=== PATIENT | male | born 1960 | race Caucasian/White ===

== ENCOUNTER 2017-09-14 11:00 | Emergency (ER) | payer SELFPAY ==
[~2017-09-14] VITALS: Ht 167.6 cm; Wt 61.4 kg
[2017-09-14 11:24] VITALS: BP 218/110; PULSE 94; RESP 12; TEMP 98.2; O2SAT 94
[2017-09-14 13:53] LABS: AUTOMATED NEUTROPHIL # 9.7 TH/MM3 (1.8-7.7); BASOPHIL % 0.3 % (0.0-2.0); EOSINOPHIL % 0.1 % (0.0-4.0); HEMATOCRIT 44.2 % (39.0-51.0); HEMOGLOBIN 15.1 GM/DL (13.0-17.0); LYMPH % 6.6 % (9.0-44.0); LYMPHOCYTE # 0.8 TH/MM3 (1.0-4.8); MEAN CELL VOLUME 99.7 FL (80.0-100.0); MEAN CORPUSCULAR HGB CONC 34.1 % (32.0-36.0); MEAN PLATELET VOLUME 7.1 FL (7.0-11.0); MONO % 7.1 % (0.0-8.0); MONOCYTE # 0.8 TH/MM3 (0-0.9); NEUT % 85.9 % (16.0-70.0); PLATELET COUNT 304 TH/MM3 (150-450); RED BLOOD COUNT 4.43 MIL/MM3 (4.50-5.90); RED CELL DISTRIBUTION WIDTH 13.3 % (11.6-17.2); WHITE BLOOD COUNT 11.3 TH/MM3 (4.0-11.0)
[2017-09-14 14:15] LABS: ALT (GPT) 185 U/L (12-78); AST (GOT) 244 U/L (15-37); BICARBONATE 29.2 MEQ/L (21.0-32.0); BLOOD UREA NITROGEN 6 MG/DL (7-18); CALCIUM 8.7 MG/DL (8.5-10.1); CHLORIDE 103 MEQ/L (98-107); CREATININE 0.66 MG/DL (0.60-1.30); GLOMERULAR FILTRATION RATE 125 ML/MIN (>89); GLUCOSE,RANDOM 80 MG/DL (74-106); SODIUM (NA) 140 MEQ/L (136-145)
[2017-09-14 14:17] LABS: ALKALINE PHOSPHATASE 91 U/L (45-117); TOTAL BILIRUBIN ADULT 0.6 MG/DL (0.2-1.0); TOTAL PROTEIN 7.7 GM/DL (6.4-8.2)
[2017-09-14] MEDS ORDERED: LIBRAX PO (14:54)
--- NOTE | 2017-09-14 14:56 | PD ---
HPI Chief Complaint: Medical Clearance Time Seen by Provider: 14:26 Travel History International Travel<30 days: No Contact w/Intl Traveler<30days: No Traveled to known affect area: No History of Present Illness HPI patient states that he moved from [facility], and while with friends yesterday decided that he needs to stop drinking, last drink was at 2 am ( nearly 12 hours ago), patient states he feels a little jumpy but no other major complaint. he is here seeking guidance for detox. PCP-NO LOCAL ALL:PCN PMHX:HTN OFF MEDS FOR 1 YEAR SOCIAL HX: patient drinks regularly as much as 20 beers a day PFSH Past Medical History Cardiovascular Problems: Yes (HTN) Review of Systems Except as stated in HPI: all other systems reviewed are Neg General / Constitutional: No: Fever Eyes: No: Visual changes HENT: No: Headaches Cardiovascular: No: Chest Pain or Discomfort Respiratory: No: Shortness of Breath Gastrointestinal: No: Abdominal Pain Genitourinary: No: Dysuria Musculoskeletal: No: Pain Skin: No Rash Neurologic: No: Weakness Psychiatric: No: Depression Endocrine: No: Polydipsia Hematologic/Lymphatic: No: Easy Bruising Physical Exam Narrative GENERAL: SKIN: Warm and dry. HEAD: Atraumatic. Normocephalic. EYES: Pupils equal and round. No scleral icterus. No injection or drainage. ENT: No nasal bleeding or discharge. Mucous membranes pink and moist. NECK: Trachea midline. No JVD. CARDIOVASCULAR: Regular rate and rhythm. RESPIRATORY: No accessory muscle use. Clear to auscultation. Breath sounds equal bilaterally. GASTROINTESTINAL: Abdomen soft, non-tender, nondistended. MUSCULOSKELETAL: Extremities without clubbing, cyanosis, or edema. No obvious deformities. NEUROLOGICAL: Awake and alert. No obvious cranial nerve deficits. Motor grossly within normal limits. Five out of 5 muscle strength in the arms and legs. Normal speech. PSYCHIATRIC: Appropriate mood and affect; insight and judgment normal. Data Data Last Documented VS Vital Signs Date Time Temp Pulse Resp B/P (MAP) Pulse Ox O2 Delivery O2 Flow Rate FiO2 09/14/17 11:24 98.2 94 12 218/110 (146) 94 Orders Orders Complete Blood Count With Diff (09/14/17 11:57) Comprehensive Metabolic Panel (09/14/17 11:57) Alcohol (Ethanol) (09/14/17 11:57) Labs Laboratory Tests Test 09/14/17 13:05 White Blood Count 11.3 TH/MM3 Red Blood Count 4.43 MIL/MM3 Hemoglobin 15.1 GM/DL Hematocrit 44.2 % Mean Corpuscular Volume 99.7 FL Mean Corpuscular Hemoglobin 34.0 PG Mean Corpuscular Hemoglobin Concent 34.1 % Red Cell Distribution Width 13.3 % Platelet Count 304 TH/MM3 Mean Platelet Volume 7.1 FL Neutrophils (%) (Auto) 85.9 % Lymphocytes (%) (Auto) 6.6 % Monocytes (%) (Auto) 7.1 % Eosinophils (%) (Auto) 0.1 % Basophils (%) (Auto) 0.3 % Neutrophils # (Auto) 9.7 TH/MM3 Lymphocytes # (Auto) 0.8 TH/MM3 Monocytes # (Auto) 0.8 TH/MM3 Eosinophils # (Auto) 0.0 TH/MM3 Basophils # (Auto) 0.0 TH/MM3 CBC Comment DIFF FINAL Differential Comment Blood Urea Nitrogen 6 MG/DL Creatinine 0.66 MG/DL Random Glucose 80 MG/DL Total Protein 7.7 GM/DL Albumin 4.0 GM/DL Calcium Level 8.7 MG/DL Alkaline Phosphatase 91 U/L Aspartate Amino Transf (AST/SGOT) 244 U/L Alanine Aminotransferase (ALT/SGPT) 185 U/L Total Bilirubin 0.6 MG/DL Sodium Level 140 MEQ/L Potassium Level 3.8 MEQ/L Chloride Level 103 MEQ/L Carbon Dioxide Level 29.2 MEQ/L Anion Gap 8 MEQ/L Estimat Glomerular Filtration Rate 125 ML/MIN Ethyl Alcohol Level LESS THAN 3 MG/DL MDM Medical Decision Making Medical Screen Exam Complete: Yes Emergency Medical Condition: Yes Medical Record Reviewed: Yes Differential Diagnosis anemia v electrolyte abnl v cirrhosis Narrative Course patient is willing to follow outpatient program and he requests guidance about outpatient detox, denies si/hi, denies tremors/seizures/hallucinations or palpitations. Diagnosis Primary Impression: medical clearance Referrals: [facility] (Out patient) for assistance with your detox process Patient Instructions: Alcohol Use Disorder (DC), General Instructions Additional Instructions: as explained before DO NOT drink alcohol and take librax at same time...one or the other Scripts Chlordiazepoxide-Clidinium (Librax) 5-2.5 Mg Cap 1 CAP PO TID, #30 CAP 0 Refills Prov: Lightburn,Darryl Ibrahima MD 09/14/17 Disposition: 01 DISCHARGE HOME Condition: Stable Darryl Juan MD Sep 14, 2017 14:56
[2017-09-14] MEDS ORDERED: CHLO25CA9 PO (15:02)
[2017-09-14 15:25] VITALS: BP 199/97
== END 2017-09-14 15:30 | disposition home or self-care (01) ==
LOC: NEPD 11:23
DX: F10.20 Alcohol dependence, uncomplicated (principal); Y90.0 Blood alcohol level of less than 20 mg/100 ml
CPT/HCPCS: 80053; 80307; 85025; 99283

== ENCOUNTER 2017-10-23 18:23 | Emergency (ER) | payer SELFPAY ==
[~2017-10-23] VITALS: Ht 167.6 cm; Wt 63.5 kg
[~2017-10-23 18:23] MED LIST: CHLO25CA9 PO
[2017-10-23 18:24] VITALS: BP 218/128; PULSE 77; RESP 16; TEMP 98.5; O2SAT 96
[2017-10-24 01:00] VITALS: BP_SYST 190; PULSE 76; RESP 20; O2SAT 97
--- NOTE | 2017-10-24 01:05 | PD ---
HPI Chief Complaint: Skin Problem Time Seen by Provider: 00:46 Travel History International Travel<30 days: No Contact w/Intl Traveler<30days: No Traveled to known affect area: No History of Present Illness HPI The patient is a 57 year old male who presents to the [facility] emergency department with a history of a rash that he reports began 2-3 weeks ago. He reports that it began on his chest and it turned into a pustule. The patient reports that since then he has had other spots that have formed and gone away. At this point he has 4 spots that appear to be pustules. He reports that they are itchy and sometimes drain. He denies having any prior history of skin infections. He denies using IV drugs. He reports that he may have had a s a fever as he felt hot yesterday, however he did not check his temperature. He denies taking any fever reducers. On review of systems otherwise, he denies having any headache, neck pain, chest pain, shortness of breath, cough, congestion, abdominal pain, vomiting, diarrhea, urinary symptoms, or neurologic symptoms. Incidentally the patient is noted to be hypertensive on arrival. The patient reports that he has a history of hypertension, however he has not been taking medication for years. He denies having a primary care physician. He reports that he recently moved to the area. [facility] Past Medical History Narrative Medical The patient's past medical history is significant for hypertension. PCP: none. Cardiovascular Problems: Yes (HTN) Hypertension: Yes Tetanus Vaccination: Unknown Past Surgical History Narrative Surgical The patient's past surgical history is significant for appendectomy. Appendectomy: Yes (1975) Social History Alcohol Use: Yes (etoh: 2-3 x per week) Tobacco Use: Yes (one pk day) Substance Use: No Allergies-Medications (Allergen,Severity, Reaction): Coded Allergies: No Known Allergies (Unverified , 10/24/17) Reported Meds & Prescriptions Reported Meds & Active Scripts Active Hydrochlorothiazide 25 Mg Tab 25 Mg PO DAILY Bactroban Topical (Mupirocin) 22 Gm Cream 1 Applic TOPICAL TID 10 Days Doxycycline Hyclate 100 Mg Cap 100 Mg PO BID Bactrim DS (Sulfamethoxazole-Trimethoprim) 800-160 Mg Tab 1 Tab PO BID Review of Systems Except as stated in HPI: all other systems reviewed are Neg General / Constitutional: Positive: Fever Eyes: No: Visual changes HENT: No: Headaches Cardiovascular: No: Chest Pain or Discomfort Respiratory: No: Shortness of Breath Gastrointestinal: No: Abdominal Pain Genitourinary: No: Dysuria Musculoskeletal: No: Pain Skin: Positive Rash Neurologic: No: Weakness Psychiatric: No: Depression Endocrine: No: Polydipsia Hematologic/Lymphatic: No: Easy Bruising Physical Exam Narrative General: The patient is well-developed well-nourished male in no acute distress. Head and Neck exam: Head is normocephalic atraumatic. Eyes: EOMI, pupils are equal round and reactive to light. Nose: Midline septum with pink mucous membranes Mouth: Dentition unremarkable. Moist mucus membranes. Posterior oropharynx is not erythematous. No tonsillar hypertrophy. Uvula midline. Airway patent. Neck: No palpable lymphadenopathy. No nuchal rigidity. No thyromegaly. Cardiovascular: Regular rate and rhythm without murmurs, gallops, or rubs. Lungs: Clear to auscultation bilaterally. No wheezes, rhonchi, or rales. Abdomen: Soft, without tenderness to palpation in all 4 quadrants of the abdomen. No guarding, rebound, or rigidity. Normal bowel sounds are audible. No tenderness on palpation of McBurney's point. Negative Camarena sign. Extremities: No clubbing, cyanosis, or edema. 2+ pulses in all 4 extremities. Back: No spinous process tenderness to palpation. No costovertebral angle tenderness to palpation. Neurologic Exam: Grossly nonfocal. Skin Exam: The patient on examination is noted to have 2 pustules along the center chest without any surrounding edema, mild erythema of the skin, no fluctuance. The patient also has 2 similar-appearing pustules with a rim of erythema, no fluctuance or crepitus on the left arm. Data Data Last Documented VS Vital Signs Date Time Temp Pulse Resp B/P (MAP) Pulse Ox O2 Delivery O2 Flow Rate FiO2 10/24/17 01:50 75 20 141/93 (109) 97 10/24/17 01:00 Room Air 10/23/17 18:24 98.5 Orders Orders Clonidine (Catapres) (10/24/17 01:15) Sulfamet-Trimeth Ds 800-160 Mg (Bactrim (10/24/17 01:30) Doxycycline (Vibramycin) (10/24/17 01:30) [facility] Medical Decision Making Medical Screen Exam Complete: Yes Emergency Medical Condition: Yes Medical Record Reviewed: Yes Differential Diagnosis Folliculitis, versus MRSA, versus impetigo Narrative Course During the course of the patient's emergency department visit, the patient's history, examination, and differential diagnosis were reviewed with the patient. The patient was placed on a desk monitor with oximetry and frequent blood pressure monitoring. The patient had a blood pressure that was elevated on arrival. The last time he was in the emergency department it was also elevated. We did discuss this at length. The patient has no systemic findings related to it. The patient was given a clonidine 0.1 p.o. 1. The patient was instructed regarding the importance of following up with a primary care physician to continue on blood pressure medication. He was given a prescription for hydrochlorothiazide at discharge. The patient was also provided Bactrim DS and doxycycline in the emergency department for his pustular rash. The patient's blood pressure improved the patient will be discharged home with a prescription for hydrochlorothiazide, Bactrim, doxycycline, and Bactroban. He was instructed to keep the area clean and covered. The patient is resting comfortably and feels better, is alert and in no distress. The patient's results and examination findings were discussed with the patient. The repeat examination is unremarkable and benign. The history, exam, diagnostic testing, and current condition do not suggest any significant pathology to warrant further testing, continued ED treatment, admission, or surgical evaluation at this point. The vital signs have been stable. The patient does not have uncontrollable pain, intractable vomiting, or other significant symptoms. The patient's condition is stable and appropriate for discharge. The patient will pursue further outpatient evaluation with a primary care physician or other designated or consulting physician as indicated in the discharge instructions. The patient expressed understanding and was agreeable with this plan. Diagnosis Primary Impression: Hypertension Qualified Codes: I10 - Essential (primary) hypertension Additional Impression: Pustular folliculitis Referrals: [facility] 2 days Patient Instructions: Folliculitis (ED), General Instructions, Hypertension (ED ) Scripts Hydrochlorothiazide (Hydrochlorothiazide) 25 Mg Tab 25 MG PO DAILY, #30 TAB 0 Refills Prov: Aurelia Chaney MD 10/24/17 Mupirocin Topical (Bactroban Topical) 22 Gm Cream 1 APPLIC TOPICAL TID for Mgmt Bacterial Infection for 10 Days, #1 TUBE 0 Refills Prov: Aurelia Chaney MD 10/24/17 Doxycycline Hyclate (Doxycycline Hyclate) 100 Mg Cap 100 MG PO BID for Infection, #20 CAP 0 Refills Prov: Aurelia Chaney MD 10/24/17 Sulfamethoxazole-Trimethoprim (Bactrim DS) 800-160 Mg Tab 1 TAB PO BID for Infection, #20 TAB 0 Refills Prov: Aurelia Chaney MD 10/24/17 Disposition: DISCHARGE HOME Condition: Stable Aurelia Chaney MD Oct 24, 2017 01:05
[2017-10-24] MEDS ORDERED: cloNIDine HCL 0.1 MG TAB PO ONE (01:15)
[2017-10-24] MEDS ORDERED: SULFAMETHOXAZOLE-TRIMETHOPRIM DS 800-160 MG TAB PO ONE (01:30)
[2017-10-24] MEDS ORDERED: DOXYCYCLINE HYCLATE 100 MG CAP PO ONE (01:30)
[2017-10-24 01:50] VITALS: BP 141/93; PULSE 75; RESP 20; O2SAT 97
[2017-10-24] MEDS ORDERED: BACT800T5 PO (02:07)
[2017-10-24] MEDS ORDERED: HYDR25TA5 PO (02:07)
[2017-10-24] MEDS ORDERED: DOXY100C PO (02:07)
[2017-10-24] MEDS ORDERED: MUPI2%T TOPICAL (02:07)
[2017-10-24 03:11] VITALS: BP 137/90
== END 2017-10-24 03:33 | disposition home or self-care (01) ==
LOC: NED 18:23 → NEPC 10-24 03:33
DX: I10 Essential (primary) hypertension (principal); L73.8 Other specified follicular disorders; L08.0 Pyoderma; F17.200 Nicotine dependence, unspecified, uncomplicated
CPT/HCPCS: 99283